=== PATIENT | male | born 1960 | race Caucasian/White ===

== ENCOUNTER → 2025-02-18 | Outpatient (CLI) | payer MEDICARE ==
[2025-02-18 19:14] LABS: HEMATOCRIT(ML) 40.3 % (37.0-53.0); HEMOGLOBIN 13.3 g/dL (13.9-16.3); MEAN CORP HGB 29.4 pg (26-34); PLATELET COUNT 158 10^3/uL (150-400); RED BLOOD CELL 4.53 10^6/uL (4.50-5.90); RED CELL DISTRIBUTION WIDTH 14.2 % (11.5-14.5); WHITE BLOOD CELL 5.7 10^3/uL (4.5-11.0)
[2025-02-18 19:15] LABS: +ADD MANUAL DIFF(NO CHRG) NO; ANION GAP 8.7; BASOPHIL # 0.1 10^3/uL (0.0-0.1); BASOPHIL % 1.2 % (0.2-1.2); CARBON DIOXIDE 29.9 mmol/L (20.0-32); EOSINOPHIL # 0.1 10^3/uL (0.0-0.2); EOSINOPHIL % 1.8 % (0.0-5.0); GLUCOSE 85 mg/dL (74-106); LYMPHOCYTES # 1.34 10^3/uL1 (1.0-4.8); LYMPHOCYTES % 23.7 % (24.0-44.0); MONOCYTES # 0.6 10^3/uL (0.3-0.8); MONOCYTES % 10.6 % (5.0-12.0); NEUTROPHIL # 3.5 10^3/uL (1.8-7.7); NEUTROPHILS % 62.5 % (41.0-85.0); POTASSIUM 4.6 mmol/L (3.6-5.2); SODIUM 139 mmol/L (132-145)
[2025-02-18 19:16] LABS: ALANINE AMINOTRANSFERASE(ML) 23 U/L (12-78); ALBUMIN(ML) 3.3 g/dL (3.4-5.0); ALBUMIN/GLOBULIN RATIO 0.825; ALKALINE PHOSPHATASE 84 U/L (50-136); ASPARTATE AMINO TRANSFERASE 20 U/L (0-35); CALCIUM 9.1 mg/dL (8.4-10.5); CREATININE SERUM 0.92 mg/dL (0.59-1.40); EST GFR, NON-AA 82.6 (>/=60)
== END | disposition home or self-care (01) ==
LOC: LAB 19:01
PROVIDERS: ATTEND Internal Medicine
DX: R26.81 Unsteadiness on feet (principal); R27.8 Other lack of coordination; M62.81 Muscle weakness (generalized)
CPT/HCPCS: 36415; 80053; 85025